=== PATIENT | female | born 1960 | race Caucasian/White ===

== ENCOUNTER 2020-01-25 11:33 | Emergency (ER) | payer OTHER ==
[~2020-01-25] VITALS: Ht 165.1 cm; Wt 54.0 kg
--- NOTE | 2020-01-25 11:53 | NUR ---
MOVE SHEET SUBMITTED TO ADMITTING AND CALLED FOR TELE BED.
--- NOTE | 2020-01-25 11:55 | NUR ---
Note undone in EDM - 01/25/20 at 1205 by JASON BIBRA FROM [facility], TO ER BED 5. AAOX4. IN MODERATE RESP DISTRESS- SOB, SATTING 95% ON RA. BROUGHT IN FOR SOB. PER EMS REPORT, PT WAS BEING DIALYSED WHEN 20 MIN AFTER PT STARTED TO DEVELOPE SOB. PT WAS POSITIVE FOR COVID ON JANUARY 08. PT IS NOTED WITH DIALYSIS CATH SITE ON L UPPER CHEST. HD DAYS- AngieWAtul MD WAS AT THE BEDSIDE FOR EVAL. ORDERS RECEIVED NOTED AND CARRIED OUT.
--- NOTE | 2020-01-25 11:55 | NUR ---
SHARONDA FROM [facility], TO ER BED 5. AAOX4. IN MODERATE RESP DISTRESS- SOB, SATTING 95% ON RA. BROUGHT IN FOR SOB. PER EMS REPORT, PT WAS BEING DIALYSED WHEN 20 MIN AFTER PT STARTED TO DEVELOPE SOB. PT WAS POSITIVE FOR COVID ON JANUARY 08. PT IS NOTED WITH PRODUCTIVE COUGH AND BILAT LUNG CRACKLES. PT IS NOTED WITH DIALYSIS CATH SITE ON L UPPER CHEST. HD DAYS- M,W,F. WAS AT THE BEDSIDE FOR EVAL. ORDERS RECEIVED NOTED AND CARRIED OUT.
--- NOTE | 2020-01-25 12:00 | NUR ---
PT URINATED USING A BED ALFARO. PT ALSO ACCIDENTALLY HAD BM AND CONTAMINATED URINE. MADE AWARE. PT IS OK TO WAIT FOR THE NEXT URINATION.
[2020-01-25] MEDS ORDERED: [UNRECOGNIZED DRUG - CODE] PO (12:08)
[2020-01-25] MEDS ORDERED: [UNRECOGNIZED DRUG - CODE] PO (12:08)
[2020-01-25] MEDS ORDERED: ALBU18HF2 IH (12:08)
[2020-01-25] MEDS ORDERED: ALBU2.5V38 IH (12:08)
[2020-01-25 12:19] LABS: BASOPHILS % (AUTO) 0.2 % (0.0-2.0); EOSINOPHILS % (AUTO) 10.4 % (0.0-6.0); HEMATOCRIT 37 % (33-45); HEMOGLOBIN 12.6 g/dL (11.5-14.8); LYMPHOCYTES # (AUTO) 0.5 /CMM (0.8-4.8); LYMPHOCYTES % (AUTO) 8.6 % (20.0-44.0); MEAN CORPUSCULAR HGB CONC 34 g/dl (31.0-36.0); MEAN CORPUSCULAR VOLUME 96 fL (82-100); MONOCYTES # (AUTO) 0.4 /CMM (0.1-1.30); MONOCYTES % (AUTO) 6.4 % (2.0-12.0); NEUTROPHILS # (AUTO) 4.7 /CMM (1.8-8.9); NEUTROPHILS % (AUTO) 74.4 % (43.0-81.0); PLATELET COUNT (AUTO) 181 /CMM (150-450); WHITE BLOOD COUNT (AUTO) 6.2 K/uL (4.3-11.0)
--- NOTE | 2020-01-25 12:25 | NUR ---
GOT BED 101
[2020-01-25 12:28] LABS: CALCIUM, SERUM 9.5 mg/dL (8.5-10.1); CARBON DIOXIDE 26 mmol/L (21-32); CHLORIDE 100 mmol/L (98-107); CREATININE 5.8 mg/dL (0.6-1.3); GLUCOSE 131 mg/dL (74-106); POTASSIUM 3.9 mmol/L (3.5-5.1); SODIUM SERUM 137 mmol/L (136-145); UREA NITROGEN, BLOOD 41 mg/dL (7-18)
[2020-01-25 12:37] LABS: BILIRUBIN,TOTAL 0.5 mg/dL (0.2-1.0)
[2020-01-25 12:38] LABS: ALANINE AMINOTRANSFERASE 28 U/L (12-78); ALBUMIN 3.7 g/dL (3.4-5.0); ALKALINE PHOSPHATASE 138 U/L (46-116); ASPARTATE AMINOTRANSFERASE 17 U/L (15-37); TOTAL PROTEIN, SERUM 7.4 g/dL (6.4-8.2)
[2020-01-25 12:41] LABS: B-TYPE NATRIURETIC PEPTIDE 164 PG/ML (0-125)
[2020-01-25 12:55] LABS: D-DIMER 0.59 mg/L(FEU (0.17-0.50)
[2020-01-25 13:15] LABS: CREATINE KINASE, TOTAL 75 U/L (26-192); FERRITIN 844 ng/mL (8-388)
[2020-01-25 13:19] LABS: C-REACTIVE PROTEIN 1.8 mg/dL (0.0-0.9)
--- NOTE | 2020-01-25 14:47 | NUR ---
MD TO MD COMMUNICATION OCCURED. [employer] COMPUTER [employer]ENS[employer] INVESTIGATOR ASKED TO KEEP THE PT FOR COUPLE MORE HOURS WHILE LOOKING FOR BED. COMPUTER FORENSICS INVESTIGATOR WAS GIVEN 1 HR TO PROVIDE BED OTHERWISE PT WILL BE ADMITTED.
--- NOTE | 2020-01-25 15:09 | NUR ---
PT URINATED AND SPECIMEN SENT TO LAB
--- NOTE | 2020-01-25 15:10 | NUR ---
ROMULO FROM [facility] ASKED FOR DR. VALENCIA TO CALL DR. LOGAN AT [facility] [phone] VALENCIA WILL CALL DESMOND BACK.
[2020-01-25 15:14] LABS: APPEARANCE,URINE Clear (CLEAR); BILIRUBIN,URINE Negative (NEGATIVE); BLOOD, URINE Small Ery/uL (NEGATIVE); COLOR,URINE Yellow (YELLOW); KETONES,URINE Negative (NEGATIVE); LEUKOCYTE ESTERASE ,URINE Negative (NEGATIVE); NITRITE, URINE Negative (NEGATIVE); PH,URINE 8.5 (5.0-8.0); PROTEIN,URINE 100 mg/dl (NEGATIVE); UGLUCOSE 100 MG/DL mg/dL (NEGATIVE); UROBILINOGEN,URINE 0.2 EU/dL (0.2)
--- NOTE | 2020-01-25 15:14 | NUR ---
[facility] CALLED AND FAXED [facility]S TO [facility] PER REQUEST [phone]
--- NOTE | 2020-01-25 15:24 | NUR ---
CHAR CALLED TRANSFER INFO [facility] TO [facility] 223 CALL [phone] FOR REPORT. [facility] ARRIVE 1645. CALL CHAR WITH ANY QUESTIONS [phone]
[2020-01-25 15:57] LABS: BACTERIA,URINE Few /HPF (None Seen); SQUAMOUS EPITHELIAL CELL,UR Few /HPF (None Seen); WBC,URINE 0-2 /HPF (0-3)
[2020-01-25 16:08] VITALS: BP 115/75
--- NOTE | 2020-01-25 16:30 | NUR ---
CALLED ROMULO [phone] INFORMED THAT THE PT IS BEING MOVED. SHE SAID SHE WILL CALL HER SALES CLERK SUPERVISOR.
--- NOTE | 2020-01-25 16:32 | NUR ---
PT TRANSPORTED TO UNIT ON [facility] WITH EMT AND RN AT BEDSIDE
--- NOTE | 2020-01-25 16:39 | NUR ---
REPORT GIVEN TO KALEB LYNNE FOR TOYIN.
--- NOTE | 2020-01-25 17:21 | NUR ---
RECEIVED A CALL FROM [facility] PER AMBULANCE ON THE WAY AND DO NOT ADMIT PATIENT. SPOKE WITH KRYSTAL AND CONVEYOR CONSOLE OPERATOR CHANTALE SAID DO NOT ADMIT PATIENT ANYMORE JUST SEND TO AMBULANCE .PRIMARY RN MADE AWARE.
[2020-01-25] MEDS ORDERED: MORPHINE SULFATE INJ 2 MG/ML DISP.SYRIN IV PRN (17:30)
[2020-01-25] MEDS ORDERED: ALBUTEROL SULFATE INH 18 GM HFA.AER.AD IH PRN (17:30)
[2020-01-25] MEDS ORDERED: MAG HYDROX/AL HYDROX/SIMETH 30 ML UDC PO PRN (17:30)
[2020-01-25] MEDS ORDERED: ONDANSETRON HCL/PF 4 MG/2 ML VIAL IVP PRN (17:30)
[2020-01-25] MEDS ORDERED: HYDROCODONE/APAP 5/325MG 1 EACH TABLET PO PRN (17:30)
[2020-01-25] MEDS ORDERED: Z GUARD REMEDY 2 OZ OINT TP PRN (17:30)
[2020-01-25] MEDS ORDERED: MAGNESIUM HYDROXIDE 30 ML UDC PO PRN (17:30)
[2020-01-25] MEDS ORDERED: ACETAMINOPHEN 325 MG TABLET PO PRN (17:30)
--- NOTE | 2020-01-25 18:22 | NUR ---
REPORT GIVEN TO KALEB NAPOLES FOR TOYIN AT THE [facility].
--- NOTE | 2020-01-25 18:25 | NUR ---
PT IS COMING FROM [facility]. CHARGE NURSE OF UNIT CALLED TO HAVE NURSE CALL [facility] TO GIVE REPORT. SPOKE WITH KALEB NAPOLES FOR TOYIN AT THE [facility]. [facility] IS THE ONE RELEASING THE PT TO AMBULANCE SINCE PT IS ALREADY IN THE UNIT. ER NURSE ONLY GAVE THE REPORT TO THE HOSPITAL, PT IS IN UNIT.
[2020-01-25] MEDS ORDERED: HEPARIN SODIUM, PORCINE 5000 UNITS/1 ML VIAL SQ SCH (21:00)
== END 2020-01-25 16:40 | disposition short-term general hospital (02) ==
LOC: ER 11:40 → UNDOADMIN 17:17 → TELE1 17:17
DX: R06.03 Acute respiratory distress (principal); I12.0 Hypertensive chronic kidney disease with stage 5 chronic kidney disease or end stage renal disease; N18.6 End stage renal disease; Z99.2 Dependence on renal dialysis; Z86.19 Personal history of other infectious and parasitic diseases; Z20.828 Contact with and (suspected) exposure to other viral communicable diseases; I45.10 Unspecified right bundle-branch block; R74.0 Nonspecific elevation of levels of transaminase and lactic acid dehydrogenase [LDH]
CPT/HCPCS: 36415; 71045; 80053; 81001; 82550; 82728; 83605; 83615; 83880; 84145; 84484; 85025; 85378; 85730; 86140; 87040 ×2; 93005; 99291; C9803; U0003; 81000-TC